=== PATIENT | female | born 1985 | race Asian ===

== ENCOUNTER 2017-05-08 06:29 | Emergency (ER) | payer OTHER ==
[~2017-05-08] VITALS: Ht 154.9 cm; Wt 70.8 kg
[2017-05-08 06:33] VITALS: BP_SYST 129
--- NOTE | 2017-05-08 06:38 | NUR ---
Patient to ER bed 6 to gown for evaluation. Side rails up. Report given to Jaki NEGRETE.
--- NOTE | 2017-05-08 06:45 | NUR ---
Patient to ER C/O generalized weakness "mostly on left side" and mild headache 09/26. Denies N/V/D/C, denies chest pain. No sensory or neurological deficiencies, patient ambulated to ER bed 6 with steady gait. VS WNL. AAOx4, unlabored breathing, clear lungs, no signs of acute distress.
--- NOTE | 2017-05-08 06:50 | NUR ---
DAMIEN FULLER Kwaw at bedside evaluating the patient
[2017-05-08 07:40] LABS: BASOPHILS # (AUTO) 0.1 K/uL (0.0-0.2); BASOPHILS % (AUTO) 1.6 % (0.0-2.0); EOSINOPHILS # (AUTO) 0.1 K/uL (0.0-0.4); EOSINOPHILS % (AUTO) 1.3 % (0.0-4.0); HEMATOCRIT 44.9 % (36-48); HEMOGLOBIN 14.4 g/dL (12.0-16.0); LYMPHOCYTES # (AUTO) 1.5 K/uL (1.0-5.5); LYMPHOCYTES % (AUTO) 20.6 % (20.5-51.5); MEAN CORPUSCULAR HEMOGLOBIN 30 pg (27-31); MEAN CORPUSCULAR HGB CONC 32 % (32-36); MEAN CORPUSCULAR VOLUME 93 fL (79.0-98.0); MONOCYTES # (AUTO) 0.4 K/uL (0.0-1.0); MONOCYTES % (AUTO) 5.3 % (1.7-9.3); NEUTROPHILS % (AUTO) 71.2 % (40.0-70.0); PLATELET COUNT (AUTO) 310 K/uL (130-430); RED BLOOD CELL COUNT(AUTO) 4.83 MIL/uL (4.2-6.2); RED CELL DISTRIBUTION WIDTH 11.2 % (9.0-15.0); WHITE BLOOD COUNT (AUTO) 7.1 K/uL (4.8-10.8)
--- NOTE | 2017-05-08 07:45 | NUR ---
ER at bedside examining patient.
[2017-05-08 07:53] LABS: CALCIUM 8.8 mg/dL (8.4-11.0); CREATININE 0.75 mg/dL (0.55-1.30); POTASSIUM 3.3 mmol/L (3.5-5.1)
[2017-05-08 07:58] LABS: ALBUMIN 4.1 g/dL (3.4-4.8); TOTAL BILIRUBIN 0.7 mg/dL (0.0-1.0)
--- NOTE | 2017-05-08 08:10 | NUR ---
Pt ambulate to restroom to provide urine specimen. Pt tolerated well. Sample taken to lab.
--- NOTE | 2017-05-08 08:40 | NUR ---
EKG done at bedside. Pt tolerated well. Results given to Dr. KYLE for evaluation.
[2017-05-08 08:58] LABS: BILIRUBIN,URINE NEGATIVE (NEGATIVE); BLOOD, URINE 3+ (NEGATIVE); CLARITY/URINE CLEAR (CLEAR); COLOR,URINE YELLOW (YELLOW); GLUCOSE,URINE NEGATIVE (NEGATIVE); KETONES,URINE 2+ (NEGATIVE); LEUKOCYTE ESTERASE ,URINE NEGATIVE (NEGATIVE); NITRITE, URINE NEGATIVE (NEGATIVE); PH,URINE 5.5 (5.0-8.0); PROTEIN URINE NEGATIVE (NEGATIVE); UROBILINOGEN,URINE 0.2 (0.2-1.0)
--- NOTE | 2017-05-08 09:04 | NUR ---
Pt c/o pain 6/10 L side of neck, sharp and nonradiating. Dr. Yeh informed.
[2017-05-08] MEDS ORDERED: POTASSIUM CHLORIDE 10 MEQ TAB.PRT.SR PO ONE (09:15)
[2017-05-08] MEDS ORDERED: IBUPROFEN 600 MG TABLET PO ONE (09:30)
--- NOTE | 2017-05-08 09:38 | NUR ---
Pt medicated for pain & hypokalemia. Pt tolerated well.
[2017-05-08 09:58] LABS: BACTERIA,URINE FEW /HPF (None Seen); MUCUS,URINE 1+ /LPF (None Seen); WBC,URINE 0-3 /HPF (0-3)
--- NOTE | 2017-05-08 11:00 | NUR ---
MRI questionnaire & consent reviewed with pt & mother.
--- NOTE | 2017-05-08 12:51 | NUR ---
Off unit for MRI.
--- NOTE | 2017-05-08 14:00 | NUR ---
Pt returned to floor from radiology accompanied by rad staff. Pt tolerated well.
--- NOTE | 2017-05-08 14:45 | NUR ---
ER at bedside examining & providing update to pt & mother.
[2017-05-08 15:00] VITALS: BP_SYST 126
--- NOTE | 2017-05-08 15:00 | NUR ---
Patient given written and verbal discharge instructions and verbalizes understanding. ER MD discussed with patient the results and treatment provided. Patient in stable condition. ID arm band removed. Rx of Medrol given. Patient educated on pain management and to follow up with PMD. Pain Scale 2/10. Opportunity for questions provided and answered.
== END 2017-05-08 15:00 | disposition home or self-care (01) ==
LOC: SED 06:29
DX: G82.20 Paraplegia, unspecified (principal); E87.6 Hypokalemia
CPT/HCPCS: 36415; 70450-TC; 70551; 72141; 80053; 80061; 81000-TC; 84484; 84703; 85025; 93005; 99285